=== PATIENT | female | born 1965 | race Caucasian/White ===

== ENCOUNTER 2018-02-11 17:45 | Emergency (ER) | payer OTHER ==
[2018-02-11] MEDS ORDERED: Ketorolac Tromethamine 60 MG/2 ML VIAL ONE (18:05)
--- NOTE | 2018-02-11 18:17 | RAD ---
LEFT ELBOW FOUR VIEWS: 02/11/18 HISTORY: Pain. Injury. COMPARISON: None. FINDINGS: Joint spaces are preserved. No joint effusion. No fracture or malalignment. IMPRESSION: Unremarkable left elbow four views. POS: [facility]
== END 2018-02-11 18:47 | disposition home or self-care (01) ==
LOC: NAV ERS 17:45
DX: M77.9 Enthesopathy, unspecified (principal); F17.210 Nicotine dependence, cigarettes, uncomplicated; W22.8XXA Striking against or struck by other objects, initial encounter; Y99.0 Civilian activity done for income or pay
CPT/HCPCS: 96372; J1885

== ENCOUNTER 2020-05-31 19:12 | Emergency (ER) | payer OTHER ==
[2020-05-31] MEDS ORDERED: Ketorolac Tromethamine 60 MG/2 ML VIAL ONE (19:34)
[2020-05-31] MEDS ORDERED: traMADol HCl 50 MG TAB ONE (19:52)
== END 2020-05-31 20:19 | disposition home or self-care (01) ==
LOC: NAV ERS 19:12
DX: G57.01 Lesion of sciatic nerve, right lower limb (principal); F17.210 Nicotine dependence, cigarettes, uncomplicated
CPT/HCPCS: 96372; 99283; J1885

== ENCOUNTER 2020-06-14 18:47 | Emergency (ER) | payer OTHER ==
[2020-06-14] MEDS ORDERED: traMADol HCl 50 MG TAB ONE (19:23)
[2020-06-14] MEDS ORDERED: Ondansetron ODT 4 MG TAB ONE (19:23)
== END 2020-06-14 19:32 | disposition home or self-care (01) ==
LOC: NAV ERS 18:47
DX: M54.41 Lumbago with sciatica, right side (principal); F17.210 Nicotine dependence, cigarettes, uncomplicated
CPT/HCPCS: 99283; Q0162